=== PATIENT | female | born 1955 | race Caucasian/White ===

== ENCOUNTER 2019-11-07 16:37 | Emergency (ER) | payer OTHER, BC ==
[2019-11-07] MEDS ORDERED: ACETAMINOPHEN 325 MG TABLET (FP) PO ONE (16:50)
--- NOTE | 2019-11-07 16:50 | PDOC ---
History of Present Illness - General Chief Complaint: Laceration Stated Complaint: I HIT MY HEAD ON CABINET Time Seen by Provider: 11/07/19 16:38 - History of Present Illness Initial Comments: Wanda Varma is a 64 y/o female with reported PMH of HTN, presenting today after hitting her head on the corner of a cabinet. Reports pain over that area and a small amount of bleeding. No LOC. No dizziness. No nausea vomiting. No vision changes. No fall. Not on any blood thinners. Past History - Past Medical History Allergies/Adverse Reactions: Allergies Allergy/AdvReac Type Severity Reaction Status Date / Time moxifloxacin HCl Allergy Verified 11/07/19 16:38 [From Avelox] Sulfa (Sulfonamide Allergy Verified 11/07/19 16:38 Antibiotics) sulfamethoxazole Allergy Verified 11/07/19 16:38 [From Bactrim] sulfur [From Sulfur-8] Allergy Verified 11/07/19 16:38 trimethoprim [From Bactrim] Allergy Verified 11/07/19 16:38 Home Medications: Ambulatory Orders Cefuroxime Axetil [Ceftin] 500 mg PO BID #14 tablet 04/10/13 Phenazopyridine HCl [Pyridium] 100 mg PO TID #6 tablet 04/10/13 COPD: No CHF: No HTN: Yes - Psycho Social/Smoking Cessation Hx Smoking Status: No Smoking History: Never smoked Number of Cigarettes Smoked Daily: 0 Hx Alcohol Use: No Drug/Substance Use Hx: No Review of Systems - Review of Systems Comments:: GENERAL/CONSTITUTIONAL: No fever or chills. No weakness._ HEAD, EYES, EARS, NOSE AND THROAT: No change in vision. No change in hearing. No sore throat._ CARDIOVASCULAR: No chest pain or shortness of breath_ RESPIRATORY: Denies cough, hemoptysis_ MUSCULOSKELETAL: No joint or muscle swelling or pain. No neck or back pain._ SKIN: No rash_ NEUROLOGIC: Reports headache. No vertigo, loss of consciousness, or change in strength/sensation._ HEMATOLOGIC/LYMPHATIC: No anemia, easy bleeding, or history of blood clots._ ALLERGIC/IMMUNOLOGIC: No hives or skin allergy._ *Physical Exam - Vital Signs Last Vital Signs Temp Pulse Resp BP Pulse Ox 98.2 F 77 19 154/83 100 11/07/19 16:38 11/07/19 16:38 11/07/19 16:38 11/07/19 16:38 11/07/19 16:38 - Physical Exam GENERAL: Awake, alert, and oriented to person/place/time, in no acute distress_ HEAD: 1 cm laceration over right anterior forehead. Minimal bleeding at bedside. No racoon's eyes/blake signs. EYES: PERRLA, EOMI, sclera anicteric, conjunctiva clear_ NECK: Normal ROM, supple, no lymphadenopathy, JVD, or masses. No c-spine TTP. LUNGS: No distress, speaks in full sentences, clear to auscultation bilaterally _ HEART: Regular rate and rhythm, normal S1 and S2, no murmurs appreciated, peripheral pulses normal and equal bilaterally._ EXTREMITIES: Normal inspection, Normal range of motion, no edema. No clubbing or cyanosis_ NEUROLOGICAL: Mental status: A/Ox3 CN II-XII tested and intact. Sensation intact to sharp/dull differentiation in all extremities. Motor: Normal tone and bulk. No abnormal movements appreciated. No pronator drift. Strength tested and 5/5 in bilateral wrist flexion/extension, elbow flexion/extension, shoulder abduction, straight leg raise, knee flexion/extension, ankle dorsiflexion/plantarflexion. Patient ambulates with a steady gait. Coordination: Finger to nose and heel to manjarrez testing intact bilaterally. SKIN: Warm, Dry, normal turgor, no rashes or lesions noted Procedures - Laceration/Wound Repair Right Upper Anterior Head Wound Length: to 2.5 cm (1mm) Wound Explored: clean, no foreign body present Wound's Depth, Shape: superficial Irrigated w/ Saline: Yes Betadine Prep: No Wound Debrided: minimal Wound Repaired With: Dermabond Sterile Dressing Applied: No Medical Decision Making - Medical Decision Making 11/07/19 16:48 64 y/o female presenting after hitting her head on the corner of a cabinet. -laceration repair -tylenol 11/07/19 17:07 Laceration repaired. Pt reassessed. Reports much improvement. Plan to d/c home with wound care instructions, f/u pcp prn. All questions answered. Return precautions given. Pt verbalized understanding and agreement with plan. 11/07/19 17:09 Last tetanus shot 3 years ago. Discharge - Discharge Information Problems reviewed: Yes Clinical Impression/Diagnosis: Forehead laceration Condition: Stable - Admission No - Follow up/Referral Referrals: [facility] [place] [Provider Group] - Patient Discharge Instructions Patient Printed Discharge Instructions: DI for Laceration Repair With Dermabond Additional Instructions: Please keep the area clean and dry. You may start washing the area after 5-7 days. Please follow up with your primary care doctor as needed. Please take tylenol as needed for your pain. If you experience any new, worsening, or concerning symptoms, including fever, bleeding, discharge, severe headache, loss of consciousness, weakness, or any other concerns, please return to the emergency room. - Post Discharge Activity
[2019-11-07 17:06] VITALS: BP 154/83; PULSE 77; TEMP 98.2; BMI 32.5
[2019-11-07] MEDS ORDERED: ACETAMINOPHEN 325 MG TABLET (FP) ONE (17:09)
--- NOTE | 2019-11-07 17:29 | PDOC ---
Attending Attestation - Resident Resident Name: Soto Riley - ED Attending Attestation I have performed the following: I have examined & evaluated the patient, The case was reviewed & discussed with the resident, I agree w/resident's findings & plan, Exceptions are as noted - HPI HPI: 11/07/19 17:42 64 years old with very minor head injury not on any blood thinners bumped the top of her forehead into a cabinet corner sustained a small punctate lesion no headache no dizziness no lightheadedness no weakness no numbness no loss of consciousness no complaints at this time except for mild soreness over the site. - Physicial Exam PE: 11/07/19 17:42 Vitals: Triage Vital signs reviewed General Appearance: No acute distress, well nourished well developed, Head: Punctate lesion to top of forehead Eyes: Pupils equal reactive round, extraocular movement intact Neck: Supple; no Nucal rigidity Chest Wall: Nontender Cardiac: Regular rate and rhythym, no murmurs, no rubs, no gallops, Extremities: Full range of motion to all extremities, no cyanosis, clubbing, or edema Skin: Warm and dry, no rashes or lesions, no rash, no petechiae Neuro: AOX3; cranial Nerves 2-12 grossly intact, strength intact to all extremities, sensation intact to all extremities, gait normal Psych: Normal mood, normal affect - Medical Decision Making 11/07/19 17:43 Well-appearing no apparent distress tetanus up-to-date offered patient sutures with Dermabond patient would prefer Dermabond at this time small punctate wound irrigated Dermabond and patient made aware of scar Findings, the need for follow-up and strict return instructions discussed with patient.
== END 2019-11-07 17:16 | disposition home or self-care (01) ==
LOC: FER 16:37
PROC: 0HQ0XZZ Repair Scalp Skin, External Approach (ICD-10-PCS; principal; 2019-11-07)
DX: S01.91XA Laceration without foreign body of unspecified part of head, initial encounter (principal); I10 Essential (primary) hypertension; W22.01XA Walked into wall, initial encounter; Y93.89 Activity, other specified; Y92.89 Other specified places as the place of occurrence of the external cause; Z88.8 Allergy status to other drugs, medicaments and biological substances; Z88.2 Allergy status to sulfonamides
CPT/HCPCS: 99282-25